=== PATIENT | female | born 1960 | race Caucasian/White ===

== ENCOUNTER → 2020-01-18 | Outpatient (CLI) | payer BC | END | disposition home or self-care (01) | LOC: RAD 13:08 | PROVIDERS: ATTEND Family Medicine | DX: R22.1 Localized swelling, mass and lump, neck (principal) | CPT/HCPCS: 76536 ==

== ENCOUNTER → 2020-01-19 | Outpatient (CLI) | payer BC ==
[~2020-01-19] MED LIST: OMNIPAQUE 350 MG/ML, 100ML BOTTLE ONE
== END | disposition home or self-care (01) ==
LOC: RAD 14:35
PROVIDERS: ATTEND Family Medicine
DX: R22.1 Localized swelling, mass and lump, neck (principal); R51 Headache; F41.9 Anxiety disorder, unspecified
CPT/HCPCS: 70491; Q9967

== ENCOUNTER 2020-01-22 13:16 | Outpatient (CLI) | payer BC ==
[2020-01-22] MEDS ORDERED: LIDOCAINE-MPF 1%, 5ML ONE (14:05)
== END 2020-01-22 23:59 | disposition home or self-care (01) ==
LOC: RAD 13:16
PROVIDERS: ATTEND Family Medicine
DX: R22.1 Localized swelling, mass and lump, neck (principal)
CPT/HCPCS: 10005; 76942; 88112; 88305